=== PATIENT | male | born 1975 | race Caucasian/White ===

== ENCOUNTER 2017-05-24 18:13 | Emergency (ER) | payer SELFPAY ==
[2017-05-24 18:21] VITALS: BP 143/98
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
== END 2017-05-24 19:29 | disposition home or self-care (01) ==
LOC: UCEAST 18:13
DX: M25.512 Pain in left shoulder (principal); M25.412 Effusion, left shoulder; Z88.1 Allergy status to other antibiotic agents
CPT/HCPCS: 99212; G0463

== ENCOUNTER 2019-06-25 06:45 | Emergency (ER) | payer OTHER ==
[2019-06-25 06:54] VITALS: BP 136/95
--- OUTSIDE RECORDS SUMMARY | 2019-06-25 07:06 | XMS REPORT | Continuity of Care Document ---
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 Onset: 04/15/2015 Syncope and collapse Ag Foss M.D. Onset: 04/15/2015 Herpes zoster without complication Ag Foss M.D. Onset: 03/05/2014 Gout Ag Foss M.D. Onset: 02/14/2013 Eruption Ag Foss M.D. Onset: 04/09/2012 Social History Type Date Description Comments Sex Unknown Tobacco Use Start: Unknown Never Smoked Cigarettes ETOH Use Currently consumes alcohol 2-3 drinks every day. Allergies, Adverse Reactions, Alerts Active Allergies Reaction Severity Comments Date Amoxil,Trimox 01/21/1999 Medications Active Medications SIG Qnty Indications Ordering Provider Date Imiquimod apply a thin 24units A63.0 Toma Hart, 06/24/2019 5% Cream layer to lesions Afnp-C 3 x /week - wash off after 6-10 hrs History Medications No Active Medications Unknown 01/30/2019 - 06/24/2019 Immunizations CPT Code Status Date Vaccine Lot # [id number] Given 01/30/2019 Tetanus And Diptheria Adult Preservative Free [id number] >7Yrs [id number] Given 07/04/2018 Influenza Vac, Quadriv[place], [place] [id number] Given 05/12/2008 Tdap Tetanus, W Pertussis [id number] Vital Signs Date Vital Result Comment 06/24/2019 3:26pm BP Systolic 134 mmHg BP Diastolic 88 mmHg Heart Rate 66 /min Body Temperature 98.1 F Respiratory Rate 16 /min Height 73 inches 6'1" Weight 214.00 lb BMI (Body Mass Index) 28.2 kg/m2 01/30/2019 3:13pm BP Systolic 118 mmHg BP Diastolic 80 mmHg Heart Rate 80 /min Body Temperature 98.2 F Respiratory Rate 12 /min Height 73 inches 6'1" Weight 206.00 lb BMI (Body Mass Index) 27.2 kg/m2 Results Test Date Facility Test Result H/L Range Note Laboratory test 06/24/2019 [facility], [place] HIV 1&2 <pending> Negative finding (607)- - Antibody Screen (Fma) HCV AB (Fma) <pending> negative Laboratory test 06/24/2019 [facility] Rapid Plasma <pending> finding [address] [place] ([facility] [place] [address] Qual Test (607)- - Comprehensive 01/22/2019 [facility] Almeida(fma) Sodium 143 mEq/L 134-149 Metabolic Prof Potassium 4.4 mEq/L 3.6-5.5 Chloride 102 mEq/L 94-112 Carbon Dioxide 30 mEq/L 21-32 Glucose 100 mg/dL 70-105 BUN 21 mg/dL 6-26 Creatinine 1.2 mg/dL 0.6-1.4 BUN/Creat Ratio 17.5 CALC 8.0-36.0 Calcium 9.3 mg/dL 8.6-10.2 Total Protein 6.5 g/dL 6.4-8.3 Albumin 4.5 g/dL 3.8-5.5 Globulin 2.0 g/dL 2.0-4.8 A/G Ratio 2.3 CALC 0.6-2.3 Alk. Phosphatase 61 U/L 22-95 Alt (SGPT) 27 U/L 7-35 Ast (Sgot) 29 U/L 5-34 Total Bilirubin 0.8 mg/dL 0.2-1.3 GFR Non- >60 ml/min/1.73m^ >=60 GFR >60 ml/min/1.73m^ >=60 Lipid Profile 01/22/2019 [facility] Almeida(fma) Cholesterol 197 mg/dL 120- 200 Triglycerides 75 mg/dL 30-200 HDL Cholesterol 70 mg/dL 30-70 LDL (Calculated) 112 CALC 0-129 VLDL Cholesterol 15 mg/dL 0-50 HDL Risk Factor 2.8 CALC 0.0-4.4 CBC Electronic Fma 01/22/2019 Leos Elle(fma) WBC 5.4 x10^3/UL 4.0- 10.0 RBC 4.59 x10^6/UL 3.93-6.00 HGB 14.7 g/dL 12.0-17.0 HCT 45 % 35-50 MCV 96.9 fL High 80.0-95.0 MCH 32.0 pg 25.6-32.2 MCHC 33.0 g/dL 32.2-36.0 RDW-CV 12.1 % 11.6-14.4 PLT 187 x10^3/UL 163-400 MPV 10.4 fL 9.4-12.4 Carlo# 2.74 x10^3/UL 1.56-6.13 Lymph# 1.87 x10^3/UL 1.18-3.74 Thurston# 0.47 x10^3/UL 0.24-0.82 Eos # 0.3 x10^3/UL 0.0-0.5 Baso # 0.04 x10^3/UL 0.01-0.08 Carlo% 50.6 % 34.0-70.0 Lymph % 34.6 % 20.0-52.0 Thurston% 8.7 % 5.0-12.0 Eos% 5.2 % 0.7-7.0 Baso% 0.7 % 0.1-1.2 Procedures Description No Information Available Medical Devices Description No Information Available Encounters Description No Information Available Assessments Date Code Description Provider 06/24/2019 A63.0 Anogenital (venereal) warts Natasha Morgan 06/24/2019 Z11.3 Encounter for screening for infections Natasha Morgan with a predominantly sexual mode of transmission 01/30/2019 Z00.00 Encounter for general adult medical Ag Foss M.D. examination without abno 01/30/2019 Z23 Encounter for immunization Ag Foss M.D. 01/22/2019 Z00.00 Encntr for general adult medical exam w/o Ag Foss M.D. abnormal findings Plan of Treatment 06/24/2019 - Toma Hart, Keo-CA63.0 Anogenital (venereal) wartsNew Medication:Imiquimod 5 % - apply a thin layer to lesions 3 x /week - wash off after 6-10 hrsZ11.3 Encounter for screening for infections with a predominantly sexual mode of transmissionAllComments:Medication Management Patient Understands medications he's taking? Yes No no rx meds Are there Barriers to Adherence? Yes No na Has the patient been asked about herbal supplements and therapies, and OTC meds? Yes No Care Plan1. Patient has been queried about patient's goals/preferences and functional/ lifestyle goals at relevant visits. If relevant, describe: na2. Treatment goals as explained to the patient: abovesx resolution disease prevention 3. Are there barriers to meeting treatment goals? Yes No If Yes, please describe:does not use condoms 4. Self-Management goals as described to the patient: Yes No will try AldaraI suggest condom use with mult partners I will let you know the results of your labs Functional Status Description No Information Available Mental Status Description No Information Available Referrals Description No Information Available
--- NOTE | 2019-06-25 07:38 | ED ---
Laceration/Wound HPI - HPI Summary HPI Summary: This patient is a 44-year-old male presenting to the ED with laceration to the posterior portion of the scalp. He states he was pulling down a bar of weights this morning with a sharp edge which slipped, falling on top of his head. Denies LOC. Eyes headache, confusion, memory loss, visual changes or disturbances. He is denying any pain at this time. Rating his pain as 0/10. Bleeding is well-controlled on arrival, however he states there was profuse amount of bleeding prior to arrival. 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 - History of Current Complaint Stated Complaint: HEAD LAC PER PT Time Seen by Provider: 06/25/19 06:55 Hx Obtained From: Patient Mechanism of Injury: Sharp/Blunt Trauma Onset/Duration: Sudden Onset Aggravating: Movement Alleviating: Compression Timing: Constant Onset Severity: Mild Current Severity: Mild Pain Intensity: 3 Pain Scale Used: 0-10 Numeric Associated Signs & Symptoms: Negative - Allergy/Home Medications Allergies/Adverse Reactions: Allergies Allergy/AdvReac Type Severity Reaction Status Date / Time MS Amoxicillin [Amoxicillin] Allergy Rash Verified 06/25/19 06:55 Home Medications: Home Medications NK [No Home Medications Reported] 06/25/19 [History Confirmed 06/25/19] PMH/Surg Hx/FS Hx/Imm Hx Previously Healthy: Yes - Surgical History Surgery Procedure, Year, and Place: left wrist - Immunization History Hx Pertussis Vaccination: No Immunizations Up to Date: Yes Infectious Disease History: No Infectious Disease History: Denies: Traveled Outside the [place] in Last 30 Days - Family History Known Family History: Positive: None - Social History Occupation: Employed Full-time Lives: With Family Alcohol Use: Occasionally Hx Substance Use: No Substance Use Type: Reports: None Hx Tobacco Use: No Smoking Status (MU): Never Smoked Tobacco Review of Systems Negative: Fever, Chills, Fatigue, Skin Diaphoresis Negative: Palpitations, Chest Pain Negative: Shortness Of Breath, Cough Genitourinary: Negative Positive: no symptoms reported, see HPI Negative: Arthralgia, Myalgia Positive: Other - laceration posterior scalp - 3cm - superficial Neurological: Negative All Other Systems Reviewed And Are Negative: Yes Physical Exam Triage Information Reviewed: Yes Vital Signs On Initial Exam: Initial Vitals Temp Pulse Resp BP Pulse Ox 98.0 F 67 16 136/95 99 06/25/19 06:51 06/25/19 06:51 06/25/19 06:51 06/25/19 06:51 06/25/19 06:51 Vital Signs Reviewed: Yes Appearance: Positive: Well-Appearing, Well-Nourished Skin: Positive: Warm, Skin Color Reflects Adequate Perfusion, Other - laceration posterior scalp - 3cm - superficial Head/Face: Positive: Normal Head/Face Inspection Eyes: Positive: Normal, EOMI, MILAGROS, Conjunctiva Clear Neck: Positive: Supple, No Lymphadenopathy Respiratory/Lung Sounds: Positive: Clear to Auscultation, Breath Sounds Present Cardiovascular: Positive: RRR, Pulses are Symmetrical in both Upper and Lower Extremities Musculoskeletal: Positive: Strength/ROM Intact Neurological: Positive: Speech Normal Psychiatric: Positive: Affect/Mood Appropriate Procedures - Laceration/Wound Repair scalp Location: head Description: Linear Betadine Prep?: No Irrigated w/ Saline (ccs): 30 Laceration/Wound Explored: clean Closure: Steve #__ - 3 Diagnostics - Vital Signs Vital Signs Temp Pulse Resp BP Pulse Ox 06/25/19 06:51 98.0 F 67 16 136/95 99 - Laboratory Lab Statement: Any lab studies that have been ordered have been reviewed, and results considered in the medical decision making process. Laceration Repair Course/Dx - Course Course Of Treatment: Physical examination, patient appears well. Bleeding is well controlled. EOMI/MILAGROS. No LONDONO. 3 steve placed. Bleeding controlled. Pt tolerated well. Ok for DC and staple removal in 10 days. NO evidence of concussion or other complications. - Clinical Impression Provider Diagnoses: Laceration of head Discharge ED - Sign-Out/Discharge Documenting (check all that apply): Patient Departure Patient Received Moderate/Deep Sedation with Procedure: No - Discharge Plan Condition: Stable Disposition: HOME Patient Education Materials: Staple Care (ED) Referrals: Ag Foss MD [Primary Care Provider] - Additional Instructions: Staple removal in 10 days You may wash the area with soap and water - do no scrub Use a towel over your pillow at night as needed - Billing Disposition and Condition Condition: STABLE Disposition: Home Images - Images Head: 1 - laceration posterior scalp - 3cm - superficial - Attestation Statements Provider Attestation: I was available for consultation for this patient. I did not evaluate the patient or participate in any medical decision making or disposition decisions unless I am specifically named in the chart as having consulted on the patient. If I have consulted on the patient, please see my own ED note on the patient encounter. Audrey Maloney MD
== END 2019-06-25 07:30 | disposition home or self-care (01) ==
LOC: ED 06:45
DX: S01.01XA Laceration without foreign body of scalp, initial encounter (principal); W20.8XXA Other cause of strike by thrown, projected or falling object, initial encounter; Y93.B3 Activity, free weights; Y92.9 Unspecified place or not applicable; Z88.0 Allergy status to penicillin
CPT/HCPCS: 12002; 99282

== ENCOUNTER 2019-09-16 11:34 | Emergency (ER) | payer OTHER ==
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
[2019-09-16 12:37] VITALS: BP 141/90
== END 2019-09-16 12:36 | disposition home or self-care (01) ==
LOC: ED 11:34
DX: S01.21XA Laceration without foreign body of nose, initial encounter (principal); W19.XXXA Unspecified fall, initial encounter; Y93.83 Activity, rough housing and horseplay; Y92.9 Unspecified place or not applicable; Z88.0 Allergy status to penicillin
CPT/HCPCS: 12011; 99282